=== PATIENT | male | born 1980 | race Two or more races ===

== ENCOUNTER 2024-08-04 07:15 | Inpatient (IN) ==
[2024-08-04] MEDS ORDERED: TORADOL 60 MG VIAL ONE (07:32)
[2024-08-04] MEDS: TORADOL 60 MG VIAL IM ONE (07:36)
[2024-08-04 07:48] LABS: BASOPHILS # (AUTO) 0.1 X10^3/uL (0.0-0.1); BASOPHILS % (AUTO) 0.6 % (0.2-1.0); EOSINOPHILS % (AUTO) 0.1 % (0.9-2.9); HEMATOCRIT 41.1 % (42.0-54.0); LYMPHOCYTES % (AUTO) 8.9 % (21.0-51.0); MEAN CORPUSCULAR HEMOGLOBIN 33.9 pg (27.0-34.0); MEAN CORPUSCULAR VOLUME 99.7 fL (80.0-100.0); MEAN PLATELET VOLUME 9.2 fL (7.4-11.0); MONOCYTES # (AUTO) 0.6 x10^3/uL (0.3-0.8); MONOCYTES % (AUTO) 5.2 % (0.0-13.0); NEUTROPHILS % (AUTO) 85.2 % (42.0-75.0); PLATELET COUNT 270 X10^3/uL (150.0-450.0); RED BLOOD COUNT 4.12 X10^6/uL (4.7-6.0); RED CELL DISTRIBUTION WIDTH 12.4 % (11.6-16.5); WHITE BLOOD COUNT 11.7 X10^3/uL (3.6-10.0)
[2024-08-04 08:01] LABS: ALANINE AMINOTRANSFERASE 22 Units/L (12-78); ALBUMIN 4.2 g/dL (3.4-5.0); ALKALINE PHOSPHATASE 101 Units/L (46-116); ASPARTATE AMINO TRANSFERASE 14 Units/L (15-37); BLOOD UREA NITROGEN 12 mg/dL (7-18); CALCIUM 9.2 mg/dL (8.5-10.1); CARBON DIOXIDE 27.4 mmol/L (21-32); CHLORIDE 99 mmol/L (98-107); COR NA(FOR HYPERGLY) 136 mmol/L (136-145); CREATININE 1.14 mg/dL (0.70-1.30); GLUCOSE 139 mg/dL (65-99); POTASSIUM 3.4 mmol/L (3.5-5.1); SODIUM 135 mmol/L (136-145); TOTAL PROTEIN 8.3 g/dL (6.4-8.2); eGFR NON BLACK RACES > 60 (>60)
--- NOTE | 2024-08-04 08:48 | CT ---
EXAM:ABDOMEN/PELVIS W/O CONHISTORY:RLQ pain;COMPARISON:NoneTECHNIQUE:CT abdomen and pelvis without IV contrast.FINDINGS:Dilated proximal small bowel with right lower quadrant mesenteric stranding extending into a large right inguinal hernia with prominent intra hernia fat stranding and a dilated loop of small bowel with decompressed small bowel distal to the hernia and mostly decompressed colon. No pneumatosis intestinalis.Pertinent findings above. The lung bases, liver, gallbladder, pancreas, spleen, kidneys, gastrointestinal structures, urinary bladder, reproductive organs, lymph nodes, peritoneal space, bones, regional soft tissues were evaluated and determined to be non-acute or within normal limits for patient age except as discussed above.IMPRESSION:Small bowel containing right inguinal hernia with closed loop small-bowel obstruction associated with the hernia. Surgical consult suggested.THIS IS AN ELECTRONICALLY VERIFIED FINAL REPORT08/04/2024 8:45 AM - Electronically signed by Jonathan Peralta MD
--- NOTE | 2024-08-04 09:02 | DR.ABDMALE ---
HPI Time seen Time Seen by Provider: 08/04/24 08:58 PCP Primary Care Physician: ADRIANA HPI comment HPI Comment: History as below. Complaint Chief Complaint Doctors Comments: Patient is 44yr old male, Guamanian speaking with no past medical condition is in ER complaining of right testicular constant severe pain since yesterday. Patient denies dysuria, fever, vomiting, or discharge from the penis. Patient is nauseated. Pain is sharp and aching in nature and is 10/10. Patient have history of right inguinal hernia for few years without symptoms. He is also having severe right inguinal pain and right scrotal swelling. Patient did not take any thing for pain so have. Patient said no oral intake since day before yesterday. He denies previous surgery. Chief Complaint:: Pt c/o chronic hernia in his groin that causes pain intermittently. Yesterday while standing still pt had a sudden onset of constant severe pain in the right testicle that has continued and worsened through the n ight. Pt also c/o swelling to the right testicle. COVID-19 Coronavirus risk:travel/contact w/high risk person: No Has patient experienced Coronavirus symptoms: No Reviewed Nurses Notes Review: Yes Mode of arrival Mode of Arrival: Ambulatory Timing Onset of Chief Complaint: 08/03/24 PMH PMH Past Medical History: No Past Surgical History: No Family History History of Family Medical Conditions: No Social History Does patient currently use any type of tobacco product: No Have you used tobacco products in the last 12 months: No Type of Tobacco Use: None Does any household member use tobacco: No Alcohol Use: None Do you use any recreational Drugs:: No Lives With: Family Lives Where: Home Travel Risk Coronavirus risk:travel/contact w/high risk person: No Has patient experienced Coronavirus symptoms: No Infectious screening In the last 2 months have you had wt loss of >10#?: NO Have you had fever, night sweats or hemotysis?: No Have you traveled outside the country in the last 6 months?: No Isolation: Standard ROS Review of Systems Constitutional: No Symptoms Reported; negative Fever, Weakness or Fatigue Eyes: No Symptoms Reported ENTM: No Symptoms Reported; negative Ear Pain, Nose Discharge, Nose Congestion or Throat Pain Respiratoy: No Symptoms Reported; negative Moist Cough or Short of Breath Cardiovascular: No Symptoms Reported; negative Chest Pain Gastrointestinal/Abdominal: Abdominal Pain and Nausea; negative Constipation, Diarrhea or Vomiting Genitourinary: Pain (right groin pain, right scrotal swelling and pain.); negative Dysuria Neurological: No Symptoms Reported; negative Headache, Weakness or Dizziness Musculoskeletal: No Symptoms Reported; negative Muscle Pain Integumentary: No Symptoms Reported; negative Rash Hematologic/Lymphatic: No Symptoms Reported; negative Easy Bruising Endocrine: No Symptoms Reported; negative Increased Thirst or Increased Urine Psychiatric: No Symptoms Reported All Other Systems: Reviewed and Negative PE Vital Signs Vital Signs: Temp Pulse Resp BP Pulse Ox O2 Del Method 08/04/24 10:57 97 Room Air 08/04/24 09:30 20 08/04/24 08:06 20 08/04/24 07:36 20 08/04/24 07:27 98.1 F 80 18 129/77 97 Room Air General Limitations: Language Barrier (Patient speak Guamanian. do not speak Turkish.) General Appearance: Alert and In No Apparent Distress Head Head Exam: Normal Inspection Eyes Eye exam: Normal Appearance ENT ENT Exam: Normal Exam, Normal Oropharynx, Normal External Ear Exam and TM's Normal Bilaterally Neck Neck Exam: Normal Inspection and Trachea Midline; negative Tenderness Chest Chest Inspection: Normal Inspection and Symmetric Chest Wall Rise; negative Tenderness Respiratory Respiratory Exam: Normal Lung Sounds Bilat; negative Accessory Muscle Use, Chest Wall Tenderness or Respiratory Distress Respiratory Exam: Bilateral: Clear to Auscultation Cardiovascular Cardiovascular Exam: Regular Rate, Normal Rhythm and Normal Heart Sounds; negative Systolic Murmur or Diastolic Murmur Abdominal Exam Abdominal Exam: Normal Bowel Sounds and Tenderness Abdominal Tenderness: RLQ and Other (right scrotal swelling and tenderness, right lower groin and abdominal tenderness.) Rectal Rectal Exam: Deferred Back Back Exam: Normal Inspection; negative (R) CVA Tenderness or (L) CVA Tenderness Extremeties Extremities Exam: Normal Inspection and Normal Capillary Refill Exam: Male: Scrotal Swelling and Inguinal Hernial (right, tender.); negative Urethral Discharge or Penile Swelling Neurologic Neurological Exam: Alert and Oriented X3; negative Motor Sensory Deficit Psychiatric Psychiatric Exam: Normal Affect and Normal Mood Skin Skin Exam: Warm and Intact MDM Differential Diagnosis Differential Diagnosis: Bowel Obstruction, Diverticular disease, Hernia, Infl ammatory BD, Pancreatitis, Urinary tract infection, Urolithiasis and Testicular torsion COURSE Treatment Treatment: See orders done while patient was in ER. Labs, CT and US reports discussed with Patient. Patient taken to surgery and admitted to hospital for further management. Consultation Consultation Comments: Surgery consult with Dr. Hirsch. Discussed patient with him. He will be in ER to see patient. Education/Counseling Education/Counseling: Patient Educated On: Diagnosis ROR Labs Reviewed Laboratory Results Reviewed?: Yes 08/04/24 07:40 08/04/24 07:40 Laboratory: WBC 11.7 X10^3/uL (3.6-10.0) H 08/04/24 07:40 RBC 4.12 X10^6/uL (4.7-6.0) L 08/04/24 07:40 Hgb 14.0 g/dL (13.5-18.0) 08/04/24 07:40 Hct 41.1 % (42.0-54.0) L 08/04/24 07:40 MCV 99.7 fL (80.0-100.0) 08/04/24 07:40 MCH 33.9 pg (27.0-34.0) 08/04/24 07:40 MCHC 34.0 g/dL (33.0-35.0) 08/04/24 07:40 RDW 12.4 % (11.6-16.5) 08/04/24 07:40 Plt Count 270 X10^3/uL (150.0-450.0) 08/04/24 07:40 MPV 9.2 fL (7.4-11.0) 08/04/24 07:40 Neut % (Auto) 85.2 % (42.0-75.0) H 08/04/24 07:40 Lymph % (Auto) 8.9 % (21.0-51.0) L 08/04/24 07:40 [place] % (Auto) 5.2 % (0.0-13.0) 08/04/24 07:40 Eos % (Auto) 0.1 % (0.9-2.9) L 08/04/24 07:40 Baso % (Auto) 0.6 % (0.2-1.0) 08/04/24 07:40 Neut # (Auto) 10.0 x10^3/uL (2.2-4.8) H 08/04/24 07:40 Lymph # (Auto) 1.0 X10^3/uL (1.3-2.9) L 08/04/24 07:40 [place] # (Auto) 0.6 x10^3/uL (0.3-0.8) 08/04/24 07:40 Eos # (Auto) 0.0 x10^3/uL (0.0-0.2) 08/04/24 07:40 Baso # (Auto) 0.1 X10^3/uL (0.0-0.1) 08/04/24 07:40 Absolute Nucleated RBC 0.0 /100WBC 08/04/24 07:40 Sodium 135 mmol/L (136-145) L 08/04/24 07:40 Corrected Sodium 136 mmol/L (136-145) 08/04/24 07:40 Potassium 3.4 mmol/L (3.5-5.1) L 08/04/24 07:40 Chloride 99 mmol/L (98-107) 08/04/24 07:40 Carbon Dioxide 27.4 mmol/L (21-32) 08/04/24 07:40 BUN 12 mg/dL (7-18) 08/04/24 07:40 Creatinine 1.14 mg/dL (0.70-1.30) 08/04/24 07:40 Est GFR (MDRD) Af Amer > 60 (>60) 08/04/24 07:40 Est GFR (MDRD) Non-Af > 60 (>60) 08/04/24 07:40 Glucose 139 mg/dL (65-99) H 08/04/24 07:40 Calcium 9.2 mg/dL (8.5-10.1) 08/04/24 07:40 Corrected Calcium TNP 08/04/24 07:40 Total Bilirubin 3.10 mg/dL (0.2-1.0) H 08/04/24 07:40 AST 14 Units/L (15-37) L 08/04/24 07:40 ALT 22 Units/L (12-78) 08/04/24 07:40 Alkaline Phosphatase 101 Units/L (46-116) 08/04/24 07:40 Total Protein 8.3 g/dL (6.4-8.2) H 08/04/24 07:40 Albumin 4.2 g/dL (3.4-5.0) 08/04/24 07:40 Globulin 4.1 g/dL (2.5-4.5) 08/04/24 07:40 Albumin/Globulin Ratio 1.0 Ratio (1.1-2.1) L 08/04/24 07:40 Amylase 61 Units/L (25-115) 08/04/24 07:40 Lipase 26 Units/L (16-77) 08/04/24 07:40 XRAY XRAY Interpreted by: Radiologist (Report noted.) Opioid Opioid Risk Tool Age (Gera box if 16-45): Yes History of Preadolescent Sexual Abuse: No Total: 1 Total Score Risk Category: Low Risk Copyright: Julian IVERSON predicting aberrant behaviors Discharge Plan Diagnosis Discharge Problem: Incarcerated right inguinal hernia, Pain in right testicle Discharge Plan Patient Disposition: ADMITTED INPATIENT Condition: Stable Orders to Discharge Patient Discharge Orders: Transfer (Routine); Ordered 08/04/24 Ordered By: MONKIA CASE
[2024-08-04 09:15] LABS: AMYLASE 61 Units/L (25-115); LIPASE 26 Units/L (16-77)
--- NOTE | 2024-08-04 09:21 | US ---
EXAM:TESTICULARHISTORY:right testicle pain,SWELLING; RT TESTICULAR PAIN/SWELLINGCOMPARISON:08/04/2024TECHNIQUE: .br performed with grayscale, pulsed wave and color Doppler flow.FINDINGS:Right: The right testis is normal in size measuring 5.4 x 1.5 x 3.7 cm. Diminished but present right testicular blood flow. The epididymis is normal. Large complex intrascrotal mass consistent with small bowel containing hernia present on CT.Left: The left testis is normal in size measuring 5.3 x 2.4 x 3.5 cm. Blood flow to the testicle is normal. The epididymis is normal. No intra- or extratesticular masses.The testicles show possible few scattered microlithiasis.IMPRESSION:1. There is present but diminished right testicular blood flow which may be related to the very large and obstructing small bowel containing hernia described on CT, as it could be compressing the vascular supply. Surgical consultation again suggested if not already obtained.Possible scattered microlithiasis of doubtful immediate significance. Consider a follow-up outpatient scrotal ultrasound following resolution of acute illness.THIS IS AN ELECTRONICALLY VERIFIED FINAL REPORT08/04/2024 9:18 AM - Electronically signed by Jonathan Peralta MD
[2024-08-04] MEDS: NS 1,000 ML IV 1,000 ML IV SCH (09:26)
[2024-08-04] MEDS ORDERED: ZOFRAN INJ 4 MG VIAL ONE ×2 (09:28→10:40)
[2024-08-04] MEDS ORDERED: MORPHINE SULFATE INJ 4 MG ONE (09:28)
[2024-08-04] MEDS: MORPHINE SULFATE INJ 4 MG IVP ONE (09:30)
[2024-08-04] MEDS: ZOFRAN INJ 4 MG VIAL IVP ONE (09:31)
[2024-08-04] MEDS ORDERED: FENTANYL VIAL INJ 100 mcg ONE (10:39)
[2024-08-04] MEDS ORDERED: VERSED ONE (10:39)
[2024-08-04] MEDS ORDERED: BRIDION ONE (10:40)
[2024-08-04] MEDS ORDERED: OFIRMEV IV 1000 MG VIAL 1,000 MG/100 ML VIAL IV ONE (10:40)
[2024-08-04] MEDS ORDERED: ZEMURON 100 MG VIAL ONE (10:40)
[2024-08-04] MEDS ORDERED: DIPRIVAN VIAL 20 ML ONE (10:40)
[2024-08-04] MEDS ORDERED: TORADOL 30 MG VIAL ONE (10:40)
[2024-08-04] MEDS ORDERED: PEPCID 20 MG VIAL ONE (10:40)
[2024-08-04] MEDS: PEPCID 20 MG VIAL IVP PRN (10:45)
[2024-08-04] MEDS: ZOFRAN INJ 4 MG VIAL IVP PRN (10:45)
[2024-08-04] MEDS: LR 1,000 ML IV 1,000 ML IV ONE (10:46)
[2024-08-04] MEDS: ANCEF VIAL 1 GRAM ONE (10:53)
[2024-08-04] MEDS: NS 100 ML IV 100 ML ONE (10:53)
[2024-08-04] MEDS ORDERED: ULTANE GAS IN ONE (11:00)
[2024-08-04] MEDS: LR 1,000 ML IV 0 ML IV PRN (11:00)
[2024-08-04] MEDS: VERSED IVP PRN (11:00)
[2024-08-04] MEDS: ANCEF VIAL 1 GRAM IV PRN (11:02)
[2024-08-04] MEDS: FENTANYL VIAL INJ 100 mcg IVP PRN (11:04)
--- NOTE | 2024-08-04 11:05 | DR.H&P ---
H&P History & Physical for Day of: H&P Date: 08/04/24 Chief Complaint Chief Complaint: large right inguinal hernia History of Present Illness History of Present Illness: This is a 44-year-old male with a long history of right inguinal hernia which is larger now causing severe pain. He presented to the emergency room qnd had evaluation including CT scan which shows a closed- loop obstruction of small bowel in the right inguinal hernia as well as decreased blood flow to the right testicle although it appears this is not a t orsion. The blood flow reduction is due to the large incarcerated hernia in the inguinal canal compressing the testicular artery. Social History Does patient currently use any type of tobacco product: No Have you used tobacco products in the last 12 months: No Type of Tobacco Use: None Does any household member use tobacco: No Alcohol Use: None Medications Home Medications: Home Medications Medication Instructions Recorded Confirmed Type NK 08/04/24 08/04/24 History Allergies Allergies Allergy/AdvReac Type Severity Reaction Status Date / Time No Known Allergies Allergy Verified 08/04/24 07:32 Labs 08/04/24 07:40 08/04/24 07:40 Labs: Laboratory WBC 11.7 X10^3/uL (3.6-10.0) H 08/04/24 07:40 RBC 4.12 X10^6/uL (4.7-6.0) L 08/04/24 07:40 Hgb 14.0 g/dL (13.5-18.0) 08/04/24 07:40 Hct 41.1 % (42.0-54.0) L 08/04/24 07:40 MCV 99.7 fL (80.0-100.0) 08/04/24 07:40 MCH 33.9 pg (27.0-34.0) 08/04/24 07:40 MCHC 34.0 g/dL (33.0-35.0) 08/04/24 07:40 RDW 12.4 % (11.6-16.5) 08/04/24 07:40 Plt Count 270 X10^3/uL (150.0-450.0) 08/04/24 07:40 MPV 9.2 fL (7.4-11.0) 08/04/24 07:40 Neut % (Auto) 85.2 % (42.0-75.0) H 08/04/24 07:40 Lymph % (Auto) 8.9 % (21.0-51.0) L 08/04/24 07:40 [place] % (Auto) 5.2 % (0.0-13.0) 08/04/24 07:40 Eos % (Auto) 0.1 % (0.9-2.9) L 08/04/24 07:40 Baso % (Auto) 0.6 % (0.2-1.0) 08/04/24 07:40 Neut # (Auto) 10.0 x10^3/uL (2.2-4.8) H 08/04/24 07:40 Lymph # (Auto) 1.0 X10^3/uL (1.3-2.9) L 08/04/24 07:40 [place] # (Auto) 0.6 x10^3/uL (0.3-0.8) 08/04/24 07:40 Eos # (Auto) 0.0 x10^3/uL (0.0-0.2) 08/04/24 07:40 Baso # (Auto) 0.1 X10^3/uL (0.0-0.1) 08/04/24 07:40 Absolute Nucleated RBC 0.0 /100WBC 08/04/24 07:40 Sodium 135 mmol/L (136-145) L 08/04/24 07:40 Corrected Sodium 136 mmol/L (136-145) 08/04/24 07:40 Potassium 3.4 mmol/L (3.5-5.1) L 08/04/24 07:40 Chloride 99 mmol/L (98-107) 08/04/24 07:40 Carbon Dioxide 27.4 mmol/L (21-32) 08/04/24 07:40 BUN 12 mg/dL (7-18) 08/04/24 07:40 Creatinine 1.14 mg/dL (0.70-1.30) 08/04/24 07:40 Est GFR (MDRD) Af Amer > 60 (>60) 08/04/24 07:40 Est GFR (MDRD) Non-Af > 60 (>60) 08/04/24 07:40 Glucose 139 mg/dL (65-99) H 08/04/24 07:40 Calcium 9.2 mg/dL (8.5-10.1) 08/04/24 07:40 Corrected Calcium TNP 08/04/24 07:40 Total Bilirubin 3.10 mg/dL (0.2-1.0) H 08/04/24 07:40 AST 14 Units/L (15-37) L 08/04/24 07:40 ALT 22 Units/L (12-78) 08/04/24 07:40 Alkaline Phosphatase 101 Units/L (46-116) 08/04/24 07:40 Total Protein 8.3 g/dL (6.4-8.2) H 08/04/24 07:40 Albumin 4.2 g/dL (3.4-5.0) 08/04/24 07:40 Globulin 4.1 g/dL (2.5-4.5) 08/04/24 07:40 Albumin/Globulin Ratio 1.0 Ratio (1.1-2.1) L 08/04/24 07:40 Amylase 61 Units/L (25-115) 08/04/24 07:40 Lipase 26 Units/L (16-77) 08/04/24 07:40 Review of Systems Constitutional: See HPI (He speaks no Syrian. All communication was performed through a electronic organ mechanic by phone.) Eyes: No Symptoms Reported ENT: No Symptoms Reported Respiratory: No Symptoms Reported Cardiovascular: No Symptoms Reported Gastrointestinal: See HPI Genitourinary: See HPI Musculoskeletal: No Symptoms Reported Skin: No Symptoms Reported Neurological: No Symptoms Reported Physical Exam Vital Signs: Vital Signs Temperature 98.1 F Pulse Rate 80 Respiratory Rate 20 Respiratory Rate 20 Respiratory Rate 20 Respiratory Rate 18 Blood Pressure 129/77 O2 Sat by Pulse Oximetry 97 Oriented: Normal, Time, Person and Place Eyes: Normal Ear: Normal Nose: Normal Throat: Normal Respiratory: Clear Throughout Cardiovascular: Normal : Other (Large incarcerated strangulated right inguinal hernia. I cannot reduce it in the emergency room) Auscultation: Bowel Sounds: Normal Palpation: Normal Tenderness: Normal Skin: Normal Musculoskeletal: Normal Psychiatric: Normal Mood Description: Calm Affect: Normal Speech Pattern: Clear and Appropriate Assessment/Plan (1) Incarcerated right inguinal hernia: Status: Acute Plan: Patient will be taken to the operating suite for right inguinal hernia pair. This will be done in open fashion due to the large size of the hernia. This also gives me a chance to look at the blood flow of the testicle at that time. Review H&P Reviewed: Yes Patient was examined?: Yes
[2024-08-04] MEDS: DIPRIVAN VIAL 150 ML IVP PRN (11:06)
[2024-08-04] MEDS: ZEMURON 100 MG VIAL IVP PRN (11:27)
[2024-08-04] MEDS: MARCAINE/EPINEPHRINE ONE (11:33)
[2024-08-04] MEDS ORDERED: BARHEMSYS INJ IVP PRN (11:40)
[2024-08-04] MEDS ORDERED: REGLAN INJ 10 MG VIAL IVP PRN (11:40)
[2024-08-04] MEDS ORDERED: ZOFRAN INJ 4 MG VIAL IVP PRN (11:40)
[2024-08-04] MEDS ORDERED: DILAUDID INJ IVP PRN (11:40)
[2024-08-04] MEDS ORDERED: BENADRYL INJ 50 MG VIAL IVP PRN (11:40)
[2024-08-04] MEDS ORDERED: DILAUDID INJ ONE (11:44)
[2024-08-04] MEDS: OFIRMEV IV 1000 MG VIAL 1,000 MG/100 ML VIAL IV PRN (11:52)
[2024-08-04] MEDS ORDERED: LR 1,000 ML IV 1,000 ML IV ONE (11:55)
[2024-08-04] MEDS: BRIDION IVP PRN (11:59)
--- NOTE | 2024-08-04 12:11 | OR.IMMED ---
IMMEDIATE POST-OP NOTE Immediate Post-Op Note Date of surgery/procedure: 08/04/24 Pre-Op Diagnosis: Incarcerated, strangulated right inguinal hernia Post-Op Diagnosis: Same, omentum and small bowel and hernia, bowel compromised but pinked back up Procedure: Repair of strangulated right inguinal hernia Description of Procedure: dictated Surgeon/Suction Plate Roller Hand: Joycelyn Findings: as above , small amount of hemorrhage at the mesentery of the small bowel, significant edema Specimens Removed: hernia sac Complications: none Progress Notes: To PACU and then to floor. Will observe and hydrate. He has not been eating or drinking for several days
[2024-08-04 13:02] VITALS: BMI 25.0
[2024-08-04] MEDS: LR 1,000 ML IV 1,000 ML IV SCH (13:04)
[2024-08-04 14:29] LABS: BILIRUBIN,URINE NEGATIVE (NEGATIVE); BLOOD/HEMOGLOBIN,URINE 1+ (NEGATIVE); GLUCOSE, URINE NEGATIVE (NEGATIVE); KETONES,URINE NEGATIVE (NEGATIVE); LEUKOCYTE ESTERASE ,URINE NEGATIVE (NEGATIVE); NITRITES,URINE NEGATIVE (NEGATIVE); PROTEIN,URINE 2+ (NEGATIVE); UROBILINOGEN,URINE NORMAL (NORMAL)
[2024-08-04 14:39] LABS: APPEARANCE,URINE CLEAR (CLEAR); COLOR,URINE YELLOW (YELLOW)
[2024-08-04 14:40] LABS: BACTERIA,URINE TRACE /HPF (NEGATIVE); RBC,URINE 0-2 /HPF (0-3); SQUAMOUS EPITHELIAL CELL,UR FEW /HPF (NEGATIVE)
[2024-08-04] MEDS: BACTRIM DS TAB PO SCH (20:31)
[2024-08-04] MEDS: TYLENOL 325 MG TAB PO PRN (20:37)
[2024-08-05 06:40] LABS: BASOPHILS % (AUTO) 0.4 % (0.2-1.0); EOSINOPHILS # (AUTO) 0.1 x10^3/uL (0.0-0.2); EOSINOPHILS % (AUTO) 1.5 % (0.9-2.9); HEMATOCRIT 31.5 % (42.0-54.0); HEMOGLOBIN 10.9 g/dL (13.5-18.0); LYMPHOCYTES # (AUTO) 1.3 X10^3/uL (1.3-2.9); LYMPHOCYTES % (AUTO) 16.2 % (21.0-51.0); MEAN CORPUSCULAR HEMOGLOBIN 34.7 pg (27.0-34.0); MEAN CORPUSCULAR HGB CONC 34.6 g/dL (33.0-35.0); MEAN CORPUSCULAR VOLUME 100.1 fL (80.0-100.0); MEAN PLATELET VOLUME 9.9 fL (7.4-11.0); MONOCYTES # (AUTO) 0.8 x10^3/uL (0.3-0.8); MONOCYTES % (AUTO) 9.3 % (0.0-13.0); NEUTROPHILS % (AUTO) 72.6 % (42.0-75.0); PLATELET COUNT 184 X10^3/uL (150.0-450.0); RED BLOOD COUNT 3.15 X10^6/uL (4.7-6.0); RED CELL DISTRIBUTION WIDTH 12.3 % (11.6-16.5); WHITE BLOOD COUNT 8.3 X10^3/uL (3.6-10.0)
[2024-08-05 06:52] LABS: BLOOD UREA NITROGEN 12 mg/dL (7-18); CALCIUM 7.8 mg/dL (8.5-10.1); CARBON DIOXIDE 26.5 mmol/L (21-32); CHLORIDE 106 mmol/L (98-107); CREATININE 1.11 mg/dL (0.70-1.30); GLUCOSE 102 mg/dL (65-99); POTASSIUM 3.6 mmol/L (3.5-5.1); SODIUM 140 mmol/L (136-145); eGFR NON BLACK RACES > 60 (>60)
[2024-08-05] MEDS ORDERED: CONSULT PHARMACY - POTASSIUM & MAGNESIUM XX SCH (07:01)
[2024-08-05] MEDS: K-DUR TAB 20 MEQ PO SCH (08:10)
[2024-08-05] MEDS: LOVENOX INJ 40 MG SYR SC SCH (08:11)
[2024-08-05] MEDS: MAG-OX TAB PO SCH (08:11)
[2024-08-05] MEDS: PERCOCET TAB 5/325 MG PO PRN (08:11)
[2024-08-05 11:23] VITALS: BP 113/62; PULSE 90; RESP 20; TEMP 98.1; O2SAT 96
--- NOTE | 2024-08-05 15:08 | W.DIS.FURT ---
Summary of Discharge Discharge Summary of Date Date of Exam: 08/05/24 Admission Date Date of Admission: 08/04/24 Admission Diagnosis Patient Problems (Updated 08/04/24 @ 12:06 by MONIKA CASE) Incarcerated right inguinal hernia (Acute) K40.30 Pain in right testicle (Acute) N50.811 Hospital Course: This is a 44-year-old male with known large right inguinal hernia who presented with increasing pain of the right lower quadrant and testicle. He had an incarcerated right hernia was taken urgently to the operating room where he underwent repair of this without difficulty. He did have significant edema of the small bowel with ecchymosis at the base of small bowel but it was viable. Small bowel replaced of the abdomen and hernia repaired, mesh used . He has done well. He will be discharged today with prescription for Percocet, 5 mg tablets 1 or 6 hours. Pain he will follow-up me in 1 week. Vital Signs: Vital Signs (72 hours) 08/04/24 07:27 08/04/24 07:36 08/04/24 08:06 Temperature 98.1 F Pulse Rate 80 Pulse Rate [Left Radial] Respiratory Rate 18 20 20 Blood Pressure 129/77 Blood Pressure [Left Arm] O2 Sat by Pulse Oximetry 97 Oxygen Delivery Method Room Air Oxygen Flow Rate FIO2% 08/04/24 09:30 08/04/24 10:57 08/04/24 12:08 Temperature 97 F L Pulse Rate 88 Pulse Rate [Left Radial] Respiratory Rate 20 16 Blood Pressure 128/69 Blood Pressure [Left Arm] O2 Sat by Pulse Oximetry 97 97 Oxygen Delivery Method Room Air Aerosol Face Tent Oxygen Flow Rate FIO2% 08/04/24 12:13 08/04/24 12:18 08/04/24 12:23 Temperature Pulse Rate 83 84 88 Pulse Rate [Left Radial] Respiratory Rate 16 16 16 Blood Pressure 122/66 123/70 122/73 Blood Pressure [Left Arm] O2 Sat by Pulse Oximetry 99 98 100 Oxygen Delivery Method Aerosol Face Tent Aerosol Face Tent Nasal Cannula Oxygen Flow Rate FIO2% 08/04/24 12:28 08/04/24 12:33 08/04/24 12:38 Temperature 97.2 F L Pulse Rate 81 77 77 Pulse Rate [Left Radial] Respiratory Rate 18 18 18 Blood Pressure 123/75 129/76 136/87 Blood Pressure [Left Arm] O2 Sat by Pulse Oximetry 100 98 97 Oxygen Delivery Method Nasal Cannula Nasal Cannula Nasal Cannula Oxygen Flow Rate FIO2% 08/04/24 12:45 08/04/24 10:00 08/04/24 13:00 Temperature 97.6 F 97.5 F L Pulse Rate Pulse Rate [Left Radial] 76 71 Respiratory Rate 20 20 18 Blood Pressure Blood Pressure [Left Arm] 142/75 127/79 O2 Sat by Pulse Oximetry 99 100 Oxygen Delivery Method Nasal Cannula Nasal Cannula Oxygen Flow Rate 2 2 FIO2% 08/04/24 13:15 08/04/24 13:30 08/04/24 13:45 Temperature 97.7 F 98 F 97.7 F Pulse Rate Pulse Rate [Left Radial] 69 70 73 Respiratory Rate 17 20 18 Blood Pressure Blood Pressure [Left Arm] 128/82 135/68 119/69 O2 Sat by Pulse Oximetry 97 100 100 Oxygen Delivery Method Nasal Cannula Nasal Cannula Nasal Cannula Oxygen Flow Rate 2 2 2 FIO2% 08/04/24 14:45 08/04/24 15:45 08/04/24 16:45 Temperature 97.8 F 97.6 F 97.5 F L Pulse Rate Pulse Rate [Left Radial] 77 71 70 Respiratory Rate 20 18 20 Blood Pressure Blood Pressure [Left Arm] 111/65 114/68 105/65 O2 Sat by Pulse Oximetry 97 100 99 Oxygen Delivery Method Room Air Room Air Room Air Oxygen Flow Rate FIO2% 08/04/24 17:45 08/04/24 19:00 08/04/24 20:37 Temperature 97.7 F Pulse Rate Pulse Rate [Left Radial] 69 Respiratory Rate 18 21 Blood Pressure Blood Pressure [Left Arm] 112/62 O2 Sat by Pulse Oximetry 98 Oxygen Delivery Method Room Air Room Air Oxygen Flow Rate FIO2% 21 08/04/24 20:00 08/04/24 21:37 08/04/24 23:47 Temperature 100.4 F H 98.6 F Pulse Rate Pulse Rate [Left Radial] 85 91 H Respiratory Rate 21 16 19 Blood Pressure Blood Pressure [Left Arm] 118/65 100/57 O2 Sat by Pulse Oximetry 96 96 Oxygen Delivery Method Room Air Room Air Oxygen Flow Rate FIO2% 21 21 08/05/24 04:00 08/05/24 07:00 08/05/24 08:11 Temperature 99.4 F Pulse Rate Pulse Rate [Left Radial] 83 Respiratory Rate 18 18 Blood Pressure Blood Pressure [Left Arm] 99/60 O2 Sat by Pulse Oximetry 96 Oxygen Delivery Method Room Air Room Air Oxygen Flow Rate FIO2% 21 21 08/05/24 08:00 08/05/24 09:11 08/05/24 11:22 Temperature 98 F 98.1 F Pulse Rate Pulse Rate [Left Radial] 83 90 Respiratory Rate 21 18 20 Blood Pressure Blood Pressure [Left Arm] 110/58 113/62 O2 Sat by Pulse Oximetry 97 96 Oxygen Delivery Method Room Air Room Air Oxygen Flow Rate FIO2% 21 21 Labs: Laboratory Last Values WBC 8.3 X10^3/uL (3.6-10.0) 08/05/24 06:05 RBC 3.15 X10^6/uL (4.7-6.0) L 08/05/24 06:05 Hgb 10.9 g/dL (13.5-18.0) L D 08/05/24 06:05 Hct 31.5 % (42.0-54.0) L 08/05/24 06:05 MCV 100.1 fL (80.0-100.0) H 08/05/24 06:05 MCH 34.7 pg (27.0-34.0) H 08/05/24 06:05 MCHC 34.6 g/dL (33.0-35.0) 08/05/24 06:05 RDW 12.3 % (11.6-16.5) 08/05/24 06:05 Plt Count 184 X10^3/uL (150.0-450.0) 08/05/24 06:05 MPV 9.9 fL (7.4-11.0) 08/05/24 06:05 Neut % (Auto) 72.6 % (42.0-75.0) 08/05/24 06:05 Lymph % (Auto) 16.2 % (21.0-51.0) L 08/05/24 06:05 [place] % (Auto) 9.3 % (0.0-13.0) 08/05/24 06:05 Eos % (Auto) 1.5 % (0.9-2.9) 08/05/24 06:05 Baso % (Auto) 0.4 % (0.2-1.0) 08/05/24 06:05 Neut # (Auto) 6.0 x10^3/uL (2.2-4.8) H 08/05/24 06:05 Lymph # (Auto) 1.3 X10^3/uL (1.3-2.9) 08/05/24 06:05 [place] # (Auto) 0.8 x10^3/uL (0.3-0.8) 08/05/24 06:05 Eos # (Auto) 0.1 x10^3/uL (0.0-0.2) 08/05/24 06:05 Baso # (Auto) 0.0 X10^3/uL (0.0-0.1) 08/05/24 06:05 Absolute Nucleated RBC 0.0 /100WBC 08/05/24 06:05 Sodium 140 mmol/L (136-145) 08/05/24 06:05 Corrected Sodium TNP 08/05/24 06:05 Potassium 3.6 mmol/L (3.5-5.1) 08/05/24 06:05 Chloride 106 mmol/L (98-107) 08/05/24 06:05 Carbon Dioxide 26.5 mmol/L (21-32) 08/05/24 06:05 BUN 12 mg/dL (7-18) 08/05/24 06:05 Creatinine 1.11 mg/dL (0.70-1.30) 08/05/24 06:05 Est GFR (MDRD) Af Amer > 60 (>60) 08/05/24 06:05 Est GFR (MDRD) Non-Af > 60 (>60) 08/05/24 06:05 Glucose 102 mg/dL (65-99) H 08/05/24 06:05 Calcium 7.8 mg/dL (8.5-10.1) L 08/05/24 06:05 Corrected Calcium TNP 08/04/24 07:40 Magnesium 1.8 mg/dL (2.0-2.9) L 08/05/24 06:05 Total Bilirubin 3.10 mg/dL (0.2-1.0) H 08/04/24 07:40 AST 14 Units/L (15-37) L 08/04/24 07:40 ALT 22 Units/L (12-78) 08/04/24 07:40 Alkaline Phosphatase 101 Units/L (46-116) 08/04/24 07:40 Total Protein 8.3 g/dL (6.4-8.2) H 08/04/24 07:40 Albumin 4.2 g/dL (3.4-5.0) 08/04/24 07:40 Globulin 4.1 g/dL (2.5-4.5) 08/04/24 07:40 Albumin/Globulin Ratio 1.0 Ratio (1.1-2.1) L 08/04/24 07:40 Amylase 61 Units/L (25-115) 08/04/24 07:40 Lipase 26 Units/L (16-77) 08/04/24 07:40 Specimen Type Clean catch urine 08/04/24 14:05 Urine Color Yellow (YELLOW) 08/04/24 14:05 Urine Appearance Clear (CLEAR) 08/04/24 14:05 Urine pH 6.0 (5.0 - 8.0) 08/04/24 14:05 Ur Specific [place] 1.020 (1.000-1.030) 08/04/24 14:05 Urine Protein 2+ (NEGATIVE) 08/04/24 14:05 Urine Glucose (UA) Negative (NEGATIVE) 08/04/24 14:05 Urine Ketones Negative (NEGATIVE) 08/04/24 14:05 Urine Blood 1+ (NEGATIVE) 08/04/24 14:05 Urine Nitrite Negative (NEGATIVE) 08/04/24 14:05 Urine Bilirubin Negative (NEGATIVE) 08/04/24 14:05 Urine Urobilinogen Normal (NORMAL) 08/04/24 14:05 Ur Leukocyte Esterase Negative (NEGATIVE) 08/04/24 14:05 Urine RBC 0-2 /HPF (0-3) 08/04/24 14:05 Urine WBC 0-2 /HPF (0-5) 08/04/24 14:05 Ur Squamous Epith Cells Few /HPF (NEGATIVE) 08/04/24 14:05 Amorphous Sediment 1+ /HPF (NEGATIVE) 08/04/24 14:05 Urine Bacteria Trace /HPF (NEGATIVE) 08/04/24 14:05 Urine Mucus Few /HPF (NEGATIVE) 08/04/24 14:05 Ur Culture Indicated? No/not indicated 08/04/24 14:05 Reason For Visit: INCARCERATED RIGHT INGUINAL HERNIA, RIGHT Discharge Date Discharge Date: 08/05/24 Discharge Diagnosis All Active Problems (Updated 08/04/24 @ 12:06 by MONIKA CASE) Incarcerated right inguinal hernia (Acute) Pain in right testicle (Acute) Incarcerated right inguinal hernia (Acute) Plan of Treatment: Continue with present treatment and follow up plan. Pt is to keep follow up appointment as instructed and take medications as ordered. Discharge Medications Discharge Medications: No Known Allergies Allergy (Verified 08/04/24 07:32) New Prescriptions oxycodone-acetaminophen 5 mg-325 mg tablet (Percocet) 1 tab PO Q6H PRN 4 days #20 tabs 08/05/24 [Rx] Discharge Disposition Assessment: see hospital course Discharge Plan Discharge Plan Hospital Course: This is a 44-year-old male with known large right inguinal hernia who presented with increasing pain of the right lower quadrant and testicle. He had an incarcerated right hernia was taken urgently to the operating room where he underwent repair of this without difficulty. He did have significant edema of the small bowel with ecchymosis at the base of small bowel but it was viable. Small bowel replaced of the abdomen and hernia repaired, mesh used . He has done well. He will be discharged today with prescription for Percocet, 5 mg tablets 1 or 6 hours. Pain he will follow-up me in 1 week. Patient Disposition: 01 HOME, SELF-CARE Condition: Stable Health Concerns: Post Hospitalization: new medications and changes needed to prevent readmission or further decline. Pt educated and given instructions on all concerns. Plan of Treatment: Continue with present treatment and follow up plan. Pt is to keep follow up appointment as instructed and take medications as ordered. Assessment: see hospital course Prescription drug monitoring program results: PDMP was not reviewed Prescriptions: New oxycodone-acetaminophen [Percocet] 5-325 mg Tablet 1 tab PO Q6H MDD 4 PRN4 Days Qty: 20 0RF Follow ups/Referrals Follow ups/Referrals: [facility],None [Primary Care Provider] - 3 days Brandan Hirsch [STAFF PHYSICIAN] - 1 WEEK (call and schedule follow up appointment for one week) Instructions Instructions: Hernia, Adult, [id number] Stand Alone Forms: Find Help Web Site, Post Hospital Follow Up Care Print Language: PASHTO
--- NOTE | 2024-08-05 15:21 | DR.OPNOTE ---
OP NOTE Pre-Op Diagnosis: Incarcerated right inguinal hernia Post-Op Diagnosis: Same Procedure Date Date Of Procedure: 08/04/24 Procedure: PROCEDURE: Repair of incarcerated right inguinal hernia NARRATIVE: The patient was taken to the operative suite and general endotracheal anesthesia induced. The entire lower abdomen and scrotum prepped and draped in sterile fashion. Timeout for the procedure obtained. Right inguinal incision was made with #15 blade knife approximately 8 centimeters in length. Dissection carried through the subcutaneous tissue with electrocautery . External oblique fascia opened with Metzenbaum scissors through the external ring. Patient had a large incarcerated hernia. The hernia sac was opened and the small bowel and omentum removed from the scrotum. It had some edema with significant fluid in the sac. There was some ecchymosis at the base of the small bowel and the omentum appeared to be dusky. After several minutes of watching the bowel this all this resolved and the omentum and bowel placed back into the abdominal cavity through the internal ring. The large sac was dissected free with sharp dissection from the cord structures. Most the sac excised with electrocautery. A purse string suture of 2-0 silk used to close the hernia sac at the internal ring. Additional [id number] suture of silk placed to reinforce this closure. At this point a piece of 3 x 5 inch Prolene mesh was selected and cut to size. It was sutured to the pubic tubercle ,medially to the transversalis fascia and lateral to the shelving edge of the inguinal hernia . The mesh was divided posteriorly to create 2 tails placed around the cord structures and sutured to itself. The mesh placed underneath the external oblique fascia and the external oblique closed with running 3-0 Vicryl suture. Subcutaneous tissue closed with running 3-0 Vicryl suture. Skin closed with running 5-0 Vicryl subcuticular suture. Steri-Strips applied and the patient tolerated this well. Extubated and taken to PACU instable condition. Type of Anesthesia: General Anesthetic w/ETT Findings: Incarcerated right inguinal hernia with compromise of blood flow to the bowel which resolved after reducing the hernia Type of Fluids Used:: Lactated Ringers EBL: < 25 cc Complications:: none Needle/Sponge Count:: correct Disposition/Condition: Pt. tolerated procedure without difficulty. Extubated in the OR and taken to PACU in stable condition.
== END 2024-08-05 15:30 | disposition home or self-care (01) | DRG 351 ==
LOC: ER 07:15 → MED/SURG 10:57
PROVIDERS: ADMIT Surgery; ATTEND Surgery
DX: R73.09 Other abnormal glucose; N50.89 Other specified disorders of the male genital organs; E80.6 Other disorders of bilirubin metabolism; E83.42 Hypomagnesemia; N50.811 Right testicular pain; E87.1 Hypo-osmolality and hyponatremia; R10.31 Right lower quadrant pain; K40.30 Unilateral inguinal hernia, with obstruction, without gangrene, not specified as recurrent; E87.6 Hypokalemia